=== PATIENT | male | born 1955 | race Caucasian/White ===

== ENCOUNTER 2019-05-30 09:20 | Emergency (ER) | payer MEDICAID, MEDICARE, OTHER ==
[~2019-05-30] VITALS: Ht 175.3 cm; Wt 65.9 kg
--- NOTE | 2019-05-30 09:32 | NUR ---
Pt spoke to EDPA and tech in room and stated injury was self inflicted from "self mutilation". Pt moved from E to core room.
[2019-05-30] MEDS ORDERED: HYDROmorphone 2 MG/ML, 1ML IVPush PRN (10:00)
[2019-05-30] MEDS ORDERED: HYDROmorphone 1 MG/ML, 1ML INJ ONE (10:00)
[2019-05-30] MEDS ORDERED: SODIUM CHLORIDE FLUSH 10ML SYR IVF ONE (10:00)
[2019-05-30] MEDS ORDERED: DIPH,PERTUSS(ACELL),TET VAC/PF 0.5 ML IM-VACC ONE ×2 (10:00→10:01)
[2019-05-30] MEDS ORDERED: ONDANSETRON 2MG/ML, 2ML IVPush ONE (10:00)
[2019-05-30] MEDS ORDERED: ONDANSETRON 2MG/ML, 2ML ONE (10:01)
[2019-05-30 10:18] LABS: MEAN CORPUSCULAR HEMOGLOBIN 29.7 pg (27.5-34.5); MEAN CORPUSCULAR VOLUME 90.1 fL (81-97); MEAN PLATELET VOLUME 8.2 fL (7.4-10.4); PLATELET COUNT 233 x10^3/uL (130-400); RED BLOOD COUNT 4.97 x10^6/uL (4.38-5.82); RED CELL DISTRIBUTION WIDTH 12.9 % (9.4-14.8)
[2019-05-30 10:27] LABS: ALBUMIN 2.8 g/dL (3.4-5.0); ANION GAP 10 mmol/L (5-15); CHLORIDE 115 mmol/L (98-107); CREATININE 3.15 mg/dL (0.7-1.3)
[2019-05-30 10:28] LABS: SALICYLATE LEVEL < 1.7 mg/dL (2.8-20.0)
[2019-05-30 10:50] LABS: BASOPHILS # (AUTO) 0.01 x10^3/uL (0-0.1); BASOPHILS % (AUTO) 0 % (0-1); EOSINOPHILS # (AUTO) 0.09 x10^3/uL (0-0.4); EOSINOPHILS % (AUTO) 1 % (1-7); LYMPHOCYTES % (AUTO) 3 % (22-44); MD SCAN; MONOCYTES # (AUTO) 1.26 x10^3/uL (0.2-0.8); MONOCYTES % (AUTO) 8 % (2-9); NEUTROPHILS # (AUTO) 14.78 x10^3/uL (1.8-6.8); NEUTROPHILS % (AUTO) 89 % (42-75)
--- NOTE | 2019-05-30 10:58 | NUR ---
PROVIDER NOTIFIED 2 RN'S HAVING TROUBLE ESTABLISHING IV, US IV ATTEMPTED X2. PER PROVIDER HOLD FOR NOW, PT WILL NEED CT W/O CONTRAST BECUASE OF ELEVATED CREATINE.
--- NOTE | 2019-05-30 11:18 | NUR ---
PT TO CT
[2019-05-30 11:36] LABS: AMPHETAMINE SCREEN, URINE Negative (Negative); BARBITURATE SCREEN, URINE Negative (Negative); BENZODIAZEPINE SCREEN, URINE Negative (Negative); CANNABINOID SCREEN, URINE Positive (Negative); COCAINE SCREEN, URINE Negative (Negative); METHADONE SCREEN, URINE Negative (Negative); OPIATE SCREEN, URINE Negative (Negative)
--- NOTE | 2019-05-30 12:25 | NUR ---
requested records from [facility].
[2019-05-30] MEDS ORDERED: CLINDAMYCIN PMX 900MG/50ML 50 ML IV ONE (12:30)
[2019-05-30 12:37] VITALS: BP 107/66
[2019-05-30] MEDS ORDERED: SODIUM CHLORIDE 0.9% 1,000ML IVBOLUS ONE (13:00)
[2019-05-30] MEDS ORDERED: SODIUM CHLORIDE 0.9% 1,000 ML IV SCH (13:00)
--- NOTE | 2019-05-30 13:04 | NUR ---
LATE NOTE ENTRY FOR 1237: Received report from SAMANTA Silva. All questions answered. Assuming care of pt at this time. EDMD aware of holding PIV meds and fluids until PICC line is placed. Pt pending PICC line placement at this time.
--- NOTE | 2019-05-30 13:06 | NUR ---
received records from [facility].
--- NOTE | 2019-05-30 13:17 | NUR ---
dr clancy spoke with dr rodriguez.
[2019-05-30] MEDS ORDERED: CLINDAMYCIN 150 MG/ML, 6ML ONE (13:29)
[2019-05-30] MEDS ORDERED: CLINDAMYCIN 150 MG/ML, 6ML IM ONE (13:30)
--- NOTE | 2019-05-30 14:33 | NUR ---
Patient given discharge instructions and they have confirmed that they understand the instructions. Pt pushed in wheelchair from room to d/c. Pt left with d/c paperwork, Rx, and all personal belongings. Pt aware of follow up with referral tomorrow. Pt stated verbal understanding.
== END 2019-05-30 14:37 | disposition home or self-care (01) ==
LOC: ED 09:55
DX: S31.824A Puncture wound with foreign body of left buttock, initial encounter (principal); X58.XXXA Exposure to other specified factors, initial encounter; Y93.89 Activity, other specified; Y92.89 Other specified places as the place of occurrence of the external cause; Y99.8 Other external cause status
CPT/HCPCS: 36415; 72192; 74018; 80048; 80307; 82040; 85025; 90471; 90715; 96372; 96374; 96375; 99284; J1170; J2405; S0077

== ENCOUNTER 2019-06-18 10:08 | Outpatient (CLI) | payer MEDICAID ==
[2019-06-18] MEDS ORDERED: VIT1TABL32 PO (10:39)
[2019-06-18] MEDS ORDERED: OMEG-14 PO (10:39)
[2019-06-18] MEDS ORDERED: CLIN300C8 PO (10:39)
[2019-06-18] MEDS ORDERED: POTA99TA3 PO (10:39)
[2019-06-18] MEDS ORDERED: IBUP-1223 PO (10:39)
[2019-06-18] MEDS ORDERED: GLUC500T11 PO (10:39)
== END 2019-06-18 23:59 | disposition home or self-care (01) ==
LOC: STAR 10:08
PROVIDERS: ATTEND Surgery
DX: Z01.818 Encounter for other preprocedural examination (principal)
CPT/HCPCS: 93005

== ENCOUNTER 2019-06-25 06:23 | Day surgery (SDC) | payer MEDICAID ==
[~2019-06-25] VITALS: Ht 177.8 cm; Wt 64.0 kg
[~2019-06-25 06:23] MED LIST: CLIN300C8 PO; GLUC500T11 PO; IBUP-1223 PO; OMEG-14 PO; POTA99TA3 PO; VIT1TABL32 PO
[2019-06-25 06:59] VITALS: BP 94/60
[2019-06-25] MEDS ORDERED: FENTANYL PF 250 MCG/5ML ONE (07:28)
[2019-06-25] MEDS ORDERED: MIDAZOLAM 1 MG/ML, 2ML ONE (07:28)
[2019-06-25] MEDS ORDERED: PROPOFOL 10 MG/ML, 20ML ONE (07:29)
[2019-06-25] MEDS ORDERED: BUPIVACAINE/PF 0.5% ONE (07:31)
[2019-06-25] MEDS ORDERED: EPINEPHRINE 1 MG/ML, 1ML ONE (07:31)
[2019-06-25] MEDS ORDERED: LACTATED RINGERS 1,000 ML IV SCH (07:38)
[2019-06-25] MEDS ORDERED: CEFAZOLIN 1,000 MG ONE (07:54)
[2019-06-25] MEDS ORDERED: DEXAMETHASONE 4 MG/ML, 1ML ONE (07:57)
[2019-06-25] MEDS ORDERED: ONDANSETRON 2MG/ML, 2ML ONE (07:59)
[2019-06-25] MEDS ORDERED: KETOROLAC 30 MG/1 ML ONE (08:00)
[2019-06-25] MEDS ORDERED: PROMETHAZINE 25 MG/ML, 1ML IV PRN (08:00)
[2019-06-25] MEDS ORDERED: FENTANYL PF 100 MCG/2ML IV PRN (08:00)
[2019-06-25] MEDS ORDERED: ACETAMINOPHEN 325 MG TABLET PO PRN (08:00)
[2019-06-25] MEDS ORDERED: HYDROmorphone 2 MG/ML, 1ML IVPush PRN (08:00)
[2019-06-25] MEDS ORDERED: hydrALAzine 20 MG/ML, 1ML IV PRN (08:00)
[2019-06-25] MEDS ORDERED: MEPERIDINE/PF 25MG/ML,1ML IVPush PRN (08:00)
[2019-06-25] MEDS ORDERED: OXYcodone 5 MG/5 ML ORAL.SOL UDC PO PRN (08:00)
[2019-06-25] MEDS ORDERED: LABETALOL 5MG/ML, 20ML IV PRN (08:00)
[2019-06-25] MEDS ORDERED: ONDANSETRON 2MG/ML, 2ML IV PRN (08:00)
[2019-06-25] MEDS ORDERED: OXYcodone 5 MG/5 ML ORAL.SOL UDC ONE (08:33)
== END 2019-06-25 10:35 | disposition home or self-care (01) ==
LOC: OUT 06:23
PROVIDERS: ATTEND Surgery
DX: S31.822A Laceration with foreign body of left buttock, initial encounter (principal); Z79.899 Other long term (current) drug therapy; Z87.891 Personal history of nicotine dependence; Z98.890 Other specified postprocedural states; X78.8XXA Intentional self-harm by other sharp object, initial encounter; Y93.89 Activity, other specified; Y92.89 Other specified places as the place of occurrence of the external cause; Y99.8 Other external cause status
CPT/HCPCS: 20525; 72170; J0690; J1100; J1885; J2250; J2405; J2704; J3010; J7120; 76000; 77002; J0171